=== PATIENT | male | born 1965 ===

== ENCOUNTER → 2020-07-29 15:18 | Outpatient (BNVA) | payer OTHER, SELFPAY | PROVIDERS: PCP Internal Medicine; Visit Provider Urology ==

== ENCOUNTER → 2021-01-27 15:05 | Outpatient (BNVA) | payer OTHER, SELFPAY | PROVIDERS: Visit Provider Urology ==

== ENCOUNTER → 2022-12-14 12:25 | Outpatient (BNVA) | payer OTHER, SELFPAY | PROVIDERS: PCP Internal Medicine; Visit Provider Urology ==

== ENCOUNTER 2023-08-16 14:19 | Outpatient (AMB) | payer OTHER, SELFPAY ==
--- NOTE | 2023-08-16 14:37 | A.OFFVIS_ITS ---
Intake Intake Visit Reasons: 6M PVR(VM to confirm) Intake Note: Patient presents today for a follow-up Meds- Tadalafil, Sildenafil, Tamsulolsin Allergies to Antibiotic- No Known Allergies Blood Thinner: Aspirin Post Void Residual: 235ml Senior Health Consultant Required: No Accompanied by: Self / Same As Patient Allergies No Known Allergies Allergy (Verified 08/16/23 14:40) Medication List - Last Reconciled 08/16/23 by Kev Tobin MD aspirin 81 mg PO DAILY metformin 1,000 mg PO BID pravastatin 20 mg PO DAILY sildenafil 100 mg PO DAILY PRN 30 days tadalafil 5 mg PO DAILY 90 days tamsulosin 0.4 mg PO BEDTIME 90 days HPI HPI Comments History of Present Illness Details Luigi LOWE is a very pleasant male. He is a patient of Dr. Stokes. He is seen for the following urologic conditions. - lower urinary tract symptoms - daily t amsulosin - erectile dysfunction with type 2 diabe cruz - daily tadalafil with on demand sildenafil Follow-up of tadalafil 5 mg daily trial - with on demand Requires 40 mg on demand Noted to have PVR 200 cc Review in 6 months for bladder emptying PSA stable T 350 Slight decline in HbA1c consistent with tadalafil result Prior UTI with ciprofloxacin 10/09 - secondary to dehydration Lower Urinary Tract Symptoms: Six month follow-up for symptom control Doing well with medications. alpha-merry working well. Continue tamsulosin Discussed prostate procedure. Current visit is for further evaluation of, predominate obstructive symptoms. Current treatment includes medication, alpha merry. Prostate Symptom Score Mild (0-8), Bother 2. Symptoms include incomplete emptying, and are progressing. Results from testing include uroflow was performed No transrectal ultrasound No renal/bladder us No Prior Prostate Score unknown. Prostate volume 30-50gm. PSA - 07/09 0.8, 12/09 1.1 T 350 Associated conditions CAD No CVA No diabetes Yes elevated PSA No erectile dysfunction Yes hematuria No renal insufficiency No urge incontinence No urinary retention No urinary tract infection No psychiatric diagnosis No Testing at next visit will include bladder scan. Treatment plan Continue Flomax Erectile dysfunction - background of T2DM Daily tadalafil 5mg PFSH Medical History Incomplete emptying of bladder Review of Systems Const Denies chills and Denies fever(s) Card Reports no additional complaints and Denies syncope Resp Denies cough GI Denies abdominal pain and Denies heartburn Reports as per HPI and Denies change in libido Neuro Denies syncope Psych Denies change in libido Endo Denies change in libido Physical Exam Const General: cooperative, healthy appearing, comfortable and no acute distress Orientation/consciousness: patient oriented x3 HEENT Face and sinus: Yes normal facial exam Mouth: moist mucous membranes Neck Neck: Yes normal visual inspection, Yes full ROM and Yes trachea midline Chest Chest palpation & inspection: normal inspection of the chest Resp Effort & Inspection: normal respiratory effort, able to speak in complete sentences and no respiratory distress GI Inspection: Yes normal to inspection Back/Spine/Pelvis Cervical Spine: normal cervical lordosis Thoracic/Lumbar Spine: thoracic and lumbar spine normal to inspection Skin General skin exam: no rashes or lesions noted Neuro General: patient oriented x3, gait normal, tone normal and moves all extremities Extrem General: Yes normal to inspection and Yes capillary refill normal Office Procedures Post Void Residual Post Residual Void Post Void Residual (PVR): 235 [id number] Void Residual by ultrasound Assessment & Plan Assessment & Plan (1) Erectile dysfunction: Code(s): N52.9 - Male erectile dysfunction, unspecified (2) BPH loc w urin obs/LUTS: Code(s): N40.1 - Benign prostatic hyperplasia with lower urinary tract symptoms (3) Incomplete emptying of bladder due to benign prostatic hyperplasia: Code(s): N40.1 - Benign prostatic hyperplasia with lower urinary tract symptoms; R33.9 - Retention of urine, unspecified Plan Six-month follow-up PVR Orders: Orders AMB Post Void Residual by ultrasound 08/16/23 R33.9 - Retention of urine, unspecified Medications: Refilled tadalafil Daily medication 5 mg PO DAILY 90 tabs 1RF sexual activity 90 days N52.9 - Male erectile dysfunction, unspecified sildenafil 100 mg PO DAILY PRN 30 tabs 1RF sexual activity 30 days N52.9 - Male erectile dysfunction, unspecified Patient Instructions: Imaging studies, laboratory and physical exam results were discussed and reviewed in detail. No major barriers to patient understanding were identified. An opportunity to ask questions regarding the treatment plan was provided. All questions were answered. The patient expressed understanding and agreement with the above treatment plan. The patient is aware they should contact our office by phone for worsening of their current condition or the appearance of new urologic symptoms. Compliance is encouraged with any medications and followup testing that is ordered. It is a privilege to participate in the urologic care of your patient. If you have any questions or concerns regarding treatment for the above conditions, or other urologic issues, please do not hesitate to contact me. The office telep quintin contact is [phone]. This note is constructed using voice recognition software. While every effort has been made to ensure accuracy carton filling machine operator errors may have been included. Yours sincerely, Dr Kev Tobin MD, [facility] - Urology Providers of Expert, Compassionate Care for the Genitourinary System Coding Level of Care Code Est Pt Level 3 (41505) Diagnoses Erectile dysfunction N52.9 BPH loc w urin obs/LUTS N40.1 Incomplete emptying of bladder due to benign prostatic hyperplasia N40.1; R33.9 CPT Codes Post Residual Void - PVR CPT Code: 24323-Avsy Void Residual by ultrasound ([id number])
== END 2023-08-16 15:14 | disposition home or self-care (01) ==
PROVIDERS: PCP Internal Medicine; Visit Provider Urology
DX: N52.9 Male erectile dysfunction, unspecified (principal); N40.1 Benign prostatic hyperplasia with lower urinary tract symptoms; R33.9 Retention of urine, unspecified
CPT/HCPCS: 99213

== ENCOUNTER → 2023-08-16 14:19 | Outpatient (BNVA) | payer OTHER, SELFPAY | PROVIDERS: PCP Internal Medicine; Visit Provider Urology | DX: N52.9 Male erectile dysfunction, unspecified (principal); N40.1 Benign prostatic hyperplasia with lower urinary tract symptoms; N13.8 Other obstructive and reflux uropathy; R33.8 Other retention of urine | CPT/HCPCS: 51798 ==

== ENCOUNTER 2024-02-16 14:19 | Outpatient (AMB) | payer OTHER, SELFPAY ==
--- NOTE | 2024-02-16 14:56 | A.OFFVIS_ITS ---
Intake Visit Reasons: 6m/PVR Intake Note: Patient is Present for PVR Urology Med: Tamsulosin, Sildenafil,Tadalafil Antibiotic Allergy: None Blood Thinner: Aspirin Last PVR: 235ml Todays PVR: 249ml Last PSA 09/2022- 1.1 Interventional Physician Required: No Accompanied by: Self / Same As Patient Allergies No Known Allergies Allergy (Verified 02/16/24 15:01) Medication List - Last Reconciled 02/16/24 by Kev Tobin MD aspirin 81 mg PO DAILY metformin 1,000 mg PO BID pravastatin 20 mg PO DAILY sildenafil 100 mg PO DAILY PRN 30 days tadalafil 5 mg PO DAILY 90 days tamsulosin 0.4 mg PO BEDTIME 90 days HPI Comments Details: Luigi LOWE is a very pleasant male. He is a patient of Dr. Stokes. He is seen for the following urologic conditions. - lower urinary tract symptoms - daily tamsulosin - erectile dysfunction with type 2 diabetes - daily tadalafil with on demand sildenafil Follow-up of tadalafil 5 mg daily trial - with on demand sildenafil PVR consistent 200cc PSA stable T 350 Slight decline in HbA1c consistent with tadalafil result Discussed timing for sildenafil dosage Trial prior to dinner Six-month follow-up repeat T Prior UTI with ciprofloxacin 10/09 - secondary to dehydration Lower Urinary Tract Symptoms: Six month follow-up for symptom control Doing well with medications. alpha-merry working well. Continue tamsulosin Discussed prostate procedure. Current visit is for further evaluation of, predominate obstructive symptoms. Current treatment includes medication, alpha merry. Prostate Symptom Score Mild (0-8), Bother 2. Symptoms include incomplete emptying, and are progressing. Results from testing include uroflow was performed No transrectal ultrasound No renal/bladder us No Prior Prostate Score unknown. Prostate volume 30-50gm. PSA - 07/09 0.8, 12/09 1.1 T 350 Associated conditions CAD No CVA No diabetes Yes elevated PSA No erectile dysfunction Yes Testing at next visit will include bladder scan. Treatment plan Continue Flomax Erectile dysfunction - background of T2DM Daily tadalafil 5mg PFS Medical History (Updated 02/16/24 @ 15:27 by Kev Tobin MD) Erectile dysfunction Incomplete emptying of bladder Review of Systems Const Denies chills and Denies fever(s) Card Reports no additional complaints and Denies syncope Resp Denies cough GI Denies abdominal pain and Denies heartburn Reports as per HPI and Denies change in libido Neuro Denies syncope Psych Denies change in libido Endo Denies change in libido Physical Exam Const General: cooperative, healthy appearing, comfortable and no acute distress Orientation/consciousness: patient oriented x3 HEENT Face and sinus: Yes normal facial exam Mouth: moist mucous membranes Neck Neck: Yes normal visual inspection, Yes full ROM and Yes trachea midline Chest Chest palpation & inspection: normal inspection of the chest Resp Effort & Inspection: normal respiratory effort, able to speak in complete sentences and no respiratory distress GI Inspection: Yes normal to inspection Back/Spine/Pelvis Cervical Spine: normal cervical lordosis Thoracic/Lumbar Spine: thoracic and lumbar spine normal to inspection Skin General skin exam: no rashes or lesions noted Neuro General: patient oriented x3, gait normal, tone normal and moves all extremities Extrem General: Yes normal to inspection and Yes capillary refill normal Office Procedures Post Void Residual Post Residual Void Post Void Residual (PVR): 249 22207-Misr Void Residual by ultrasound Assessment & Plan Assessment & Plan (1) Erectile dysfunction associated with type 2 diabetes mellitus: Code(s): E11.69 - Type 2 diabetes mellitus with other specified complication; N52.1 - Erectile dysfunction due to diseases classified elsewhere Category: Medical (2) BPH loc w urin obs/LUTS: Code(s): N40.1 - Benign prostatic hyperplasia with lower urinary tract symptoms Category: Medical Plan Six-month follow-up T Orders: Orders AMB Post Void Residual by ultrasound Today N40.1 - Benign prostatic hyperplasia with lower urinary tract symptoms, R33.9 - Retention of urine, unspecified Testosterone, Total 6 Months N52.9 - Male erectile dysfunction, unspecified Prostate Specific Antigen 6 Months N52.9 - Male erectile dysfunction, unspecified Patient Instructions: Imaging studies, laboratory and physical exam results were discussed and reviewed in detail. No major barriers to patient understanding were identified. An opportunity to ask questions regarding the treatment plan was provided. All questions were answered. The patient expressed understanding and agreement with the above treatment plan. The patient is aware they should contact our office by phone for worsening of their current condition or the appearance of new urologic symptoms. Compliance is encouraged with any medications and followup testing that is ordered. It is a privilege to participate in the urologic care of your patient. If you have any questions or concerns regarding treatment for the above conditions, or other urologic issues, please do not hesitate to contact me. The office telephone contact is [phone]. This note is constructed using voice recognition software. While every effort has been made to ensure accuracy research program internship errors may have been included. Yours sincerely, Dr Kev Tobin MD, [facility] - Urology Providers of Expert, Compassionate Care for the Genitourinary System Coding Level of Care Code Est Pt Level 4 (75148) Diagnoses Erectile dysfunction associated with type 2 diabetes mellitus E11.69; N52.1 BPH loc w urin obs/LUTS N40.1 CPT Codes Post Residual Void - PVR CPT Code: 08641-Bhyo Void Residual by ultrasound ([id number])
== END 2024-02-16 15:24 | disposition home or self-care (01) ==
PROVIDERS: PCP Internal Medicine; Visit Provider Urology
DX: E11.69 Type 2 diabetes mellitus with other specified complication (principal); N52.1 Erectile dysfunction due to diseases classified elsewhere; N40.1 Benign prostatic hyperplasia with lower urinary tract symptoms
CPT/HCPCS: 99214

== ENCOUNTER → 2024-02-16 14:19 | Outpatient (BNVA) | payer OTHER, SELFPAY | PROVIDERS: PCP Internal Medicine; Visit Provider Urology | DX: E11.69 Type 2 diabetes mellitus with other specified complication (principal); N52.1 Erectile dysfunction due to diseases classified elsewhere; N40.1 Benign prostatic hyperplasia with lower urinary tract symptoms; N13.8 Other obstructive and reflux uropathy; R33.8 Other retention of urine | CPT/HCPCS: 51798 ==

== ENCOUNTER 2024-08-14 14:47 | Outpatient (AMB) | payer OTHER, SELFPAY ==
--- NOTE | 2024-08-14 14:47 | A.OFFVIS_ITS ---
Intake Visit Reasons: Six-month follow-up labs tele Intake Note: Patient is present for 6M/LABS F/U Urology Medication:TAMSULOSIN,SILDENAFIL,TADALAFIL Antibiotic Allergy:NONE Blood Thinner:ASPIRIN Molded Goods Inspector Trimmer Required: No Allergies No Known Allergies Allergy (Verified 08/14/24 14:48) HPI Comments Details: Luigi LOWE is a very pleasant male. He is a patient of Dr. Stokes. He is seen for the following urologic conditions. 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 alpha-merry working well. Continue tamsulosin Discussed prostate procedure. Current visit is for further evaluation of, predominate obstructive symptoms. Current treatment includes medication, alpha merry. Prostate Symptom Score Mild (0-8), Bother 2. Symptoms include incomplete emptying, and are progressing. Results from testing include uroflow was performed No transrectal ultrasound No renal/bladder us No Prior Prostate Score unknown. Prostate volume 30-50gm. PSA- 07/09 0.8, 12/09 1.1 T 350 Associated conditions CAD No CVA No diabetes Yes elevated PSA No erectile dysfunction Yes Testing at next visit will include bladder scan. Treatment plan Continue Flomax Erectile dysfunction - background of T2DM Daily tadalafil 5mg Low normal testosterone [facility] Medical History (Updated 02/16/24 @ 15:27 by Kev Tobin MD) Erectile dysfunction Incomplete emptying of bladder Review of Systems Const All systems reviewed & are unremarkable except as noted in HPI and below Denies chills and Denies fever(s) Card Reports no additional complaints and Denies syncope Resp Denies cough GI Denies abdominal pain and Denies heartburn Reports as per HPI and Denies change in libido Musc Reports no additional complaints Neuro Denies syncope Psych Denies change in libido Endo Denies change in libido Physical Exam Telemedicine evaluation Appropriate responses Regular breathing rate and rhythm HEENT Head: Yes normal to inspection Ears: hearing grossly normal bilaterally Eyes General: appearance normal, both eyes and all related structures Neck Neck: Yes normal visual inspection Chest Chest palpation & inspection: normal inspection of the chest Resp Effort & Inspection: normal respiratory effort and able to speak in complete sentences Telehealth Telehealth Location of provider rendering services: practice address Location of patient: address on file Patient Identification confirmed using: Name, : Yes Telehealth method: voice only Patient verbally consented to treatment: Yes Patient verbally consented to billing insurance company: Yes Patient informed of any privacy concerns related to visit: Yes Assessment & Plan Assessment & Plan (1) Erectile dysfunction associated with type 2 diabetes mellitus: Code(s): E11.69 - Type 2 diabetes mellitus with other specified complication; N52.1 - Erectile dysfunction due to diseases classified elsewhere Category: Medical (2) Incomplete emptying of bladder due to benign prostatic hyperplasia: Code(s): N40.1 - Benign prostatic hyperplasia with lower urinary tract symptoms; R33.9 - Retention of urine, unspecified Category: Medical Plan Six-month follow-up office Medications: Refilled tamsulosin 0.4 mg PO BEDTIME 90 caps 1RF 90 days N52.9 - Male erectile dysfunction, unspecified tadalafil Daily medication 5 mg PO DAILY 90 tabs 1RF sexual activity 90 days N52.9 - Male erectile dysfunction, unspecified sildenafil 100 mg PO DAILY PRN 30 tabs 1RF sexual activity 30 days N52.9 - Male erectile dysfunction, unspecified Patient Instructions: This note is constructed using voice recognition software. While every effort has been made to ensure accuracy people greeter errors may have been included. Imaging studies, laboratory and physical exam results were discussed and reviewed in detail. No major barriers to patient understanding were identified. An opportunity to ask questions regarding the treatment plan was provided. All questions were answered. The patient expressed understanding and agreement with the above treatment plan. The patient is aware they should contact our office by phone for worsening of their current condition or the appearance of new urologic symptoms. Compliance is encouraged with any medications and followup testing that is ordered. It is a privilege to participate in the urologic care of your patient. If you have any questions or concerns regarding treatment for the above conditions, or other urologic issues, please do not hesitate to contact me. The office telephone contact is [phone]. Sincerely, Dr Kev Tobin MD, [facility] - Urology Compassionate Specialist Care for the Genitourinary System Coding Level of Care Code Tele Est Pt Level 3 (10275) Complex EM visit Add On G2211 Diagnoses Erectile dysfunction associated with type 2 diabetes mellitus E11.69; N52.1 Incomplete emptying of bladder due to benign prostatic hyperplasia N40.1; R33.9
--- OUTSIDE RECORDS SUMMARY | 2024-08-14 18:14 | XMS_ITS ---
Continuity of Care Document (CCD) Created on: August 14, 2024 Luigi Son External Reference #: [id number] : [id number] Sex: Male Author Organization [facility] Address [address] [place] [address] Phone [phone] Social History Type Date Description Comments Sex Unknown Medical Devices Description No Information Available Encounters Description No Information Available Assessments Description No Information Available Plan of Treatment No Information Available Functional Status Description No Information Available Mental Status Description No Information Available Referrals Description No Information Available
== END 2024-08-14 15:41 | disposition home or self-care (01) ==
LOC: HO.HUSH 14:47
PROVIDERS: PCP Internal Medicine; Visit Provider Urology
DX: E11.69 Type 2 diabetes mellitus with other specified complication (principal); N52.1 Erectile dysfunction due to diseases classified elsewhere; N40.1 Benign prostatic hyperplasia with lower urinary tract symptoms; R33.9 Retention of urine, unspecified
CPT/HCPCS: 98013

== ENCOUNTER → 2024-08-14 14:47 | Outpatient (BNVA) | payer OTHER, SELFPAY | PROVIDERS: PCP Internal Medicine; Visit Provider Urology ==

== ENCOUNTER 2024-08-21 07:49 | Outpatient (REF) | payer OTHER, SELFPAY ==
--- OUTSIDE RECORDS SUMMARY | 2024-08-21 07:52 | XMS_ITS | Continuity of Care Document ---
Author Organization [facility] Address [address] [place] [address] Phone [phone] Social History Type Date Description Comments Sex Unknown Medical Devices Description No Information Available Encounters Description No Information Available Assessments Description No Information Available Plan of Treatment No Information Available Functional Status Description No Information Available Mental Status Description No Information Available Referrals Description No Information Available
[2024-08-21 11:41] LABS: Prostate Specific Antigen 1.97 ng/mL (<0.05-4.0)
[2024-08-27 13:39] LABS: Testosterone, Total 285 ng/dL (250-1100)
== END 2024-08-21 07:50 | disposition home or self-care (01) ==
LOC: HO.10HDL 07:49
PROVIDERS: Visit Provider Urology
DX: N52.9 Male erectile dysfunction, unspecified (principal); Z12.5 Encounter for screening for malignant neoplasm of prostate
CPT/HCPCS: 36415; 84153; 84403

== ENCOUNTER 2025-02-18 13:51 | Outpatient (AMB) | payer OTHER, SELFPAY ==
--- NOTE | 2025-02-18 13:51 | MHC.OFFVIS ---
Intake Visit Reasons: 6m follow up Intake Note: Patient is present for 6M follow up Urology Medication:TAMSULOSIN,SILDENAFIL,TADALAFIL Antibiotic Allergy:NONE Blood Thinner:ASPIRIN PVR: 120 mls Chemist Internship Required: No Accompanied by: Self / Same As Patient Allergies No Known Allergies Allergy (Verified 02/18/25 13:52) HPI Comments Details: Luigi LOWE is a very pleasant male. He is a patient of Dr. Stokes. He is seen for the following urologic conditions. - lower urinary tract symptoms - daily tamsulosin - erectile dysfunction with type 2 diabetes - daily tadalafil with on demand sildenafil - male hypogonadism Given low testosterone in setting of type 2 diabetes recommend testosterone latter day Trial enclomiphene Borderline hypogonadism in setting of diabetes - 09/10 285 2.0 Lower Urinary Tract Symptoms: In setting of diabetes Six month follow-up for symptom control Doing well with medications. alpha-merry working well. Continue tamsulosin Discussed prostate procedure. Current visit is for further evaluation of, predominate obstructive symptoms. Current treatment includes medication, alpha merry. Prostate Symptom Score Mild (0-8), Bother 2. Symptoms include incomplete emptying, and are progressing. Results from testing include uroflow was performed No transrectal ultrasound No renal/bladder us No Prior Prostate Score unknown. Prostate volume 30-50gm. PSA- 07/09 0.8, 12/09 1.1 T 350, 09/10 285 Associated conditions CAD No CVA No diabetes Yes elevated PSA No erectile dysfunction Yes Testing at next visit will include bladder scan. Treatment plan Continue Flomax Erectile dysfunction - background of T2DM Daily tadalafil 5mg Low normal testosterone [facility] Medical History (Updated 02/18/25 @ 14:16 by Kev Tobin MD) Erectile dysfunction Incomplete emptying of bladder Review of Systems Const Denies chills and Denies fever(s) Card Reports no additional complaints and Denies syncope Resp Denies cough GI Denies abdominal pain and Denies heartburn Reports as per HPI and Denies change in libido Neuro Denies syncope Psych Denies change in libido Endo Denies change in libido Physical Exam Const General: cooperative, healthy appearing, comfortable and no acute distress Orientation/consciousness: patient oriented x3 HEENT Face and sinus: Yes normal facial exam Mouth: moist mucous membranes Neck Neck: Yes normal visual inspection, Yes full ROM and Yes trachea midline Chest Chest palpation & inspection: normal inspection of the chest Resp Effort & Inspection: normal respiratory effort, able to speak in complete sentences and no respiratory distress GI Inspection: Yes normal to inspection Back/Spine/Pelvis Cervical Spine: normal cervical lordosis Thoracic/Lumbar Spine: thoracic and lumbar spine normal to inspection Skin General skin exam: no rashes or lesions noted Neuro General: patient oriented x3, gait normal, tone normal and moves all extremities Extrem General: Yes normal to inspection and Yes capillary refill normal Assessment & Plan Assessment & Plan (1) Primary hypogonadism in male: Code(s): E29.1 - Testicular hypofunction Category: Medical Plan Three-month follow-up lab work tele Orders: Orders Lutenizing Hormone 10 Weeks E29.1 - Testicular hypofunction Testosterone, Total 10 Weeks E29.1 - Testicular hypofunction Medications: New [enclomiphene] Patient Cell Number - [facility] - Fax , 1 tab PO DAILY 90 tabs 1RF 90 days E29.1 - Testicular hypofunction Patient Instructions: This note is constructed using voice recognition software. While every effort has been made to ensure accuracy solar systems designer errors may have been included. Imaging studies, laboratory and physical exam results were discussed and reviewed in detail. No major barriers to patient understanding were identified. An opportunity to ask questions regarding the treatment plan was provided. All questions were answered. The patient expressed understanding and agreement with the above treatment plan. The patient is aware they should contact our office by phone for worsening of their current condition or the appearance of new urologic symptoms. Compliance is encouraged with any medications and followup testing that is ordered. It is a privilege to participate in the urologic care of your patient. If you have any questions or concerns regarding treatment for the above conditions, or other urologic issues, please do not hesitate to contact me. The office telephone contact is [phone]. Sincerely, Dr Kev Tobin MD, [facility] - Urology Compassionate Specialist Care for the Genitourinary System Coding Level of Care Code Est Pt Level 4 (34043) Diagnoses Primary hypogonadism in male E29.1
--- OUTSIDE RECORDS SUMMARY | 2025-02-18 15:05 | XMS_ITS | Continuity of Care Document ---
Author Organization [facility] Address [address] [place] [address] Phone [phone] Social History Type Date Description Comments Sex Male Sex Unknown Medical Devices Description No Information Available Encounters Description No Information Available Assessments Description No Information Available Plan of Treatment No Information Available Functional Status Description No Information Available Mental Status Description No Information Available Referrals Description No Information Available
== END 2025-02-18 14:19 | disposition home or self-care (01) ==
LOC: HO.HUSH 13:51
PROVIDERS: PCP Internal Medicine; Visit Provider Urology
DX: Z13.9 Encounter for screening, unspecified (principal); E29.1 Testicular hypofunction
CPT/HCPCS: 99214

== ENCOUNTER → 2025-02-18 13:51 | Outpatient (BNVA) | payer OTHER, SELFPAY | PROVIDERS: PCP Internal Medicine; Visit Provider Urology | DX: E29.1 Testicular hypofunction (principal) | CPT/HCPCS: 51798; 81003 ==

== ENCOUNTER 2025-05-01 14:11 | Outpatient (REF) | payer OTHER, SELFPAY ==
--- OUTSIDE RECORDS SUMMARY | 2024-09-03 09:30 | XMS_ITS ---
Author Organization [facility] Address [address] [place], [place] [id number] Care Team Providers Care Horticultural Specialty Grower Inside Name Role Phone MARIA E MARTINS Primary Care Provider REASON FOR VISIT 6mo F/U MEDICATIONS Medication SIG (Take, Route, Frequency, Duration) Notes Start Date End Date Status Cialis 10 MG 1 tablet as needed O rally Once a day for 30 day(s) Unknown Losartan Potassium 25 MG 1 tablet Orally Once a day for 30 day(s) 03/25/2024 Unknown Flomax 0.4 MG 1 capsule Orally Onc e a day for 30 day(s) Unknown metFORMIN HCl 1000 MG TAKE 1 TABLET BY M OUTH TWICE A DAY WITH A MEAL FOR 90 DAYS for 90 Unknown Pravastatin Sodium 20 MG TAKE 1 TABLET B Y MOUTH EVERY DAY for 90 Unknown Aspirin 81 81 MG 1 tablet Orally Once a day for 30 day(s) Unknown SOCIAL HISTORY Sex Assigned At : Social History Observation Description Sex Assigned At Male Encounters Encounter Location Date Provider Diagnosis [facility] [address] [place] [address] 09/03/2024 MARIA E MARTINS Type 2 diabetes mellitus without complications E11.9 ; Disorder of lipoprotein metabolism, unspecified E78.9 ; Essential (primary) hypertension I10 ; Erectile dysfunction, unspecified erectile dysfunction type N52.9 ; Low testosterone in male R79.89 and Nocturia R35.1 ASSESSMENTS Encounter Date Diagnosis Assessment Notes Treatment Notes Treatment Clinical Notes Section Notes 09/03/2024 Type 2 diabetes mellitus without complications (ICD-10 - E11.9) 09/03/2024 Disorder of lipoprotein metabolism, unspecified (ICD-10 - E78.9) 09/03/2024 Essential (primary) hypertension (ICD-10 - I10) 09/03/2024 Erectile dysfunction, unspecified erectile dysfunction type (ICD-10 - N52.9) 09/03/2024 Low testosterone in male (ICD-10 - R79.89) 09/03/2024 Nocturia (ICD-10 - R35.1) PLAN OF TREATMENT Future Test Test Name Order Date Hemoglobin Q6r-[id number] 08/27/2024 Testosterone-[id number] 08/27/2024 TSH-[id number] 08/27/2024 Luteinizing Hormone(LH)-314269 Follicle-stimulating Hormone(FSH)-014663 08/27/2024 Prolactin-688414 08/27/2024 Prostate-Specific Ag (PSA)-[id number] 2024 CBC, Platelet, w/o Differential-[id number] 0 08/27/2024 Lipid Panel-[id number] 08/27/2024 BMP8+eGFR-[id number] 08/27/2024 Next Appt Details Follow Up: OV 6 months labs pending, Reason: History and Physical Notes * HPI (History of Present Illness) Category Sub-Category Detail Notes Category Not es General htn f/u. see ro s
--- OUTSIDE RECORDS SUMMARY | 2024-09-19 10:30 | XMS_ITS ---
Author Organization [facility] Address [address], [place] [address] Care Team Providers Care Dope House Operator Helper Name Role Phone MARIA E MARTINS Primary Care Provider ALLERGIES No Known Allergies REASON FOR VISIT follow up MEDICATIONS Medication SIG (Take, Route, Frequency, Duration) Notes Start Date End Date Status Losartan Potassium 25 MG 1 tablet Orally Once a day for 30 day(s) 03/25/2024 Active Pravastatin Sodium 20 MG TAKE 1 TABLET B Y MOUTH EVERY DAY for 90 Active metFORMIN HCl 1000 MG TAKE 1 TABLET BY M OUTH TWICE A DAY WITH A MEAL FOR 90 DAYS for 90 Active Flomax 0.4 MG 1 capsule Orally Onc e a day for 30 day(s) Active Cialis 5 MG 1 tab(s) Orally Once a day Active Aspirin 81 81 MG 1 tablet Orally Once a day for 30 day(s) Active SOCIAL HISTORY Tobacco Use: Social History Observation Description Date Details (start date - stop date) Never Smoker NA - NA Sex Assigned At : Social History Observation Description Sex Assigned At Male Smoking Question Answer Notes Are you a: never smoker VITAL SIGNS Blood pressure systolic 124 mm Hg 09/20/19 25 Blood pressure diastolic 80 mm Hg 025 Height 69 in 09/19/2024 Weight 183 lbs 09/19/2024 BMI 27.02 kg/m2 09/19/2024 Encounters Encounter Location Date Provider Diagnosis [facility] [address] [place] [address] 09/19/2024 MARIA E MARTINS Nocturia R35.1 ; Typ e 2 diabetes mellitus without complications E11.9 ; Disorder of lipoprotein metabolism, unspecified E78.9 ; Essential (primary) hypertension I10 and Erectile dysfunction, unspecified erectile dysfunction type N52.9 ASSESSMENTS Encounter Date Diagnosis Assessment Notes Treatment Notes Treatment Clinical Notes Section Notes 09/19/2024 Nocturia (ICD-10 - R35.1) Stable. Check PSA. Follow-up with urology. Continue with Cialis 5 mg a day 09/19/2024 Type 2 diabetes mellitus without complications (ICD-10 - E11.9) No polyuria polydipsia no ophthalmologic or neurologic symptoms. Ophthalmology follow-up every year. Baby aspirin. Continue DIMAS inhibitor and statin. Check A1c goal less than 7.5 09/19/2024 Disorder of lipoprotein metabolism, unspecified (ICD-10 - E78.9) Continue statin therapy check lipid profile LDL goal less than 100 optimally less than 70 diet exercise weight maintenance 09/19/2024 Essential (primary) hypertension (ICD-10 - I10) Blood pressure well-controlled no change in therapy check EKG normal sinus rhythm no change 09/19/2024 Erectile dysfunction, unspecified erectile dysfunction type (ICD-10 - N52.9) Follow-up with urology. Will check a testosterone in early a.m. along with an FSH LH and prolactin level. Continue with Cialis 5 mg a day PLAN OF TREATMENT Treatment Notes Assessment Notes Nocturia Stable. Check PSA. F ollow-up with urology. Continue with Cialis 5 mg a day Type 2 diabetes mellitus wit hout complications No polyuria polydipsia no ophthalmologic or neurologic symptoms. Ophthalmology follow-up every year. Baby aspirin. Continue DIMAS inhibitor and statin. Check A1c goal less than 7.5 Disorder of lipoprotein meta bolism, unspecified Continue statin therapy check lipid prof ile LDL goal less than 100 optimally less than 70 diet exercise weight maintenance Essential (primary) hypertension Blood p ressure well-controlled no change in therapy check EKG normal sinus rhythm no change Erectile dysfunction, unspec ified erectile dysfunction type Follow-up with urology. Will check a testosterone in early a.m. along with an FSH LH and prolactin level. Continue with Cialis 5 mg a day Future Test Test Name Order Date Hemoglobin [id number] 09/06/2024 Prostate-Specific Ag (PSA)-[id number] 2024 CBC, Platelet, w/o [id number] 09/06/2024 Lipid [id number] 09/06/2024 HCV Antibody-[id number] 09/06/2024 BMP8+[id number] 09/06/2024 Next Appt Details Follow Up: OV 6 months labs pending EKG today, Reason: Progress Notes * Examination Category Sub-Category Detail Notes Category Not es General Examination HEENT: Conjunctiva pink anicteric mucous membranes moist oropharynx clear TMs clear sinus clear EACs clear fundi negative Rest Neck: Supple carotids 2+ n o bruits lymphadenopathy no thyromegaly Heart: RRR, no murmurs, cli cks or rubs Lungs: clear to auscultatio n Abdomen: soft, non tender/non distended, no rebound tenderness, no guarding or rigidity, no masses palpated, no hepatosplenomegaly Extremities: no clubbing , cyanos is, or edema, pulses 2 plus bilaterally General Appearance Pleasant well-develo ped well-nourished black male appearing stated age no apparent distress Skin: normal, no rash, valeria ign appearing moles Neuro alert and oriented x 3, CN 2-12 intact, motor 5/5 bilaterally proximally and distally in all 4 extremities, no focal abnormality lower extremity intact monofilament vibration History and Physical Notes * HPI (History of Present Illness) Category Sub-Category Detail Notes Category Not es General Hypertension fo llow-up. See review of systems below
--- OUTSIDE RECORDS SUMMARY | 2024-09-24 06:38 | XMS_ITS ---
Author Organization [facility] Address [address] [place], [place] [id number] Care Team Providers Care Turf And Grounds Supervisor Name Role Phone MARIA E MARTINS Primary Care Provider [phone] REASON FOR VISIT Labs SOCIAL HISTORY Sex Assigned At : Social History Observation Description Sex Assigned At Male Encounters Encounter Location Date Provider Diagnosis [facility] [address] [place] [address] 09/24/2024 MARIA E MARTINS PLAN OF TREATMENT No Information
--- OUTSIDE RECORDS SUMMARY | 2024-12-30 03:34 | XMS_ITS ---
Author Organization [facility] Address [address] [place], [place] [id number] Care Team Providers Care Ore Grader Name Role Phone MARIA E MARTINS Primary Care Provider REASON FOR VISIT (i) Leg Pain SOCIAL HISTORY Sex Assigned At : Social History Observation Description Sex Assigned At Male Encounters Encounter Location Date Provider Diagnosis [facility] [address] [place] [address] 12/30/2024 MARIA E MARTINS PLAN OF TREATMENT No Information
--- OUTSIDE RECORDS SUMMARY | 2024-12-30 04:00 | XMS_ITS ---
Author Organization [facility] Address [address] [place], [place] [id number] Care Team Providers Care Senior Qa Automation Engineer Name Role Phone MARIA E MARTINS Primary Care Provider REASON FOR VISIT r/s tomorrow's ov to 01/01/25 SOCIAL HISTORY Sex Assigned At : Social History Observation Description Sex Assigned At Male Encounters Encounter Location Date Provider Diagnosis [facility] [address] [place] [address] 12/30/2024 MARIA E MARTINS PLAN OF TREATMENT No Information
--- OUTSIDE RECORDS SUMMARY | 2024-12-31 05:40 | XMS_ITS ---
Author Organization [facility] Address [address] [place], [place] [id number] Care Team Providers Care Sand Slinger Name Role Phone MARIA E MARTINS Primary Care Provider DEIDRA CHAHAL Unavailable [phone] REASON FOR VISIT KP 42 Knee Pain SOCIAL HISTORY Sex Assigned At : Social History Observation Description Sex Assigned At Male Encounters Encounter Location Date Provider Diagnosis [facility] [address] [place] [address] 12/31/2024 DEIDRA CHAHAL PLAN OF TREATMENT No Information
--- OUTSIDE RECORDS SUMMARY | 2025-01-01 08:39 | XMS_ITS ---
Author Organization [facility] Address [address] [place], [place] [id number] Care Team Providers Care Anesthesiology Medical Doctor Name Role Phone MARIA E MARTINS Primary Care Provider [phone] REASON FOR VISIT Update [employer] Demographics SOCIAL HISTORY Sex Assigned At : Social History Observation Description Sex Assigned At Male Encounters Encounter Location Date Provider Diagnosis [facility] [address] [place] [address] 01/01/2025 MARIA E MARTINS PLAN OF TREATMENT No Information
--- OUTSIDE RECORDS SUMMARY | 2025-01-01 08:40 | XMS_ITS ---
Author Organization [facility] Address [address] [place], [place] [address] Care Team Providers Care Reaming Press Operator Name Role Phone MARTINS MARIA E Primary Care Provider DEIDRA CHAHAL Unavailable [phone] ALLERGIES No Known Allergies REASON FOR REFERRAL Reason (faxed 01/05/25) medi al left knee pain, swelling, pain with valgus stress, ?meniscal tear vs MCL strain Diagnosis 1 Left medial knee salvador n (M25.562) Referral Organization [facility] Referring Provider First Name DEIDRA Referring Provider Last Name TIRSO Referring Provider Speciality Physician Aircraft Captain Referred Provider RK MESA Notes Leslie MURRIETA MA 12/18 09:55:18 PM > faxed ref to f: [phone] Referral Priority Urgent REASON FOR VISIT /left [...] SIGNS Blood pressure systolic 124 mm Hg 01/02/20 25 Blood pressure diastolic 72 mm Hg 025 Height 69 in 01/01/2025 Weight 189 lbs 01/01/2025 BMI 27.91 kg/m2 01/01/2025 Encounters Encounter Location Date Provider Diagnosis [facility] [address] [place] [address] 01/01/2025 DEIDRA PULITO Left medial knee salvador [...]
--- OUTSIDE RECORDS SUMMARY | 2025-03-25 08:45 | XMS_ITS ---
Author Organization [facility] Address [address] [place], [place] [id number] Care Team Providers Care Oracle Software Engineer Name Role Phone MARIA E MARTINS Primary Care Provider [phone] ALLERGIES No Known Allergies REASON FOR REFERRAL Reason 03/28/25 W APPT Refe rral to [facility] for colonoscopy talk next spring patient will call make appointment Diagnosis 1 Colon cancer screeni jean (Z12.11) Referral Organization [facility] sociates Referring Provider First Name MARIA E Referring Provider Last Name LAKSHMI Referring Provider Speciality Internal M edicine Referred Provider NENA ARNETT Referred Provider Specialty Gastroentero logy General Notes Hoda MURRIETA Admin 03/2025 03:09:24 PM > faxed medical referral, note and most recent labs to [phone]>NO REFERRAL REQUIRED Referral Priority Routine REASON FOR VISIT 6mo F/U MEDICATIONS Medication SIG (Take, Route, Frequency, Duration) Notes Start Date End Date Status Pravastatin Sodium 20 MG TAKE 1 TABLET B Y MOUTH EVERY DAY Active Flomax 0.4 MG 1 capsule Orally Once a day Active Aspirin 81 81 MG 1 tablet Orally Once a day Active metFORMIN HCl 1000 MG TAKE 1 TABLET BY M OUTH TWICE A DAY WITH A MEAL FOR 90 DAYS Active Cialis 5 MG 1 tab(s) Orally Once a day Active Losartan Potassium 25 MG 1 tablet Orally Once a day 03/25/2024 Active SOCIAL HISTORY Tobacco Use: Social History Observation Description Date Details (start date - stop date) Never Smoker NA - NA Sex Assigned At : Social History Observation Description Sex Assigned At Male Smoking Question Answer Notes Are you a: never smoker VITAL SIGNS Blood pressure systolic 135 mm Hg 03/25/20 25 Blood pressure diastolic 80 mm Hg 025 Height 69 in 03/25/2025 Weight 188 lbs 03/25/2025 BMI 27.76 kg/m2 03/25/2025 Encounters Encounter Location Date Provider Diagnosis [facility] [address] [place] [address] 03/25/2025 MARIA E MARTINS Type 2 diabetes mellitus without complications E11.9 ; Essential (primary) hypertension I10 ; Disorder of lipoprotein metabolism, unspecified E78.9 ; Nocturia R35.1 ; Low testosterone in male R79.89 and Colon cancer screening Z12.11 ASSESSMENTS Encounter Date Diagnosis Assessment Notes Treatment Notes Treatment Clinical Notes Section Notes 03/25/2025 Type 2 diabetes mellitus without complications (ICD-10 - E11.9) No polyuria polydipsia. Recommend ophthalmology 2-year. Check A1c goal less than 7 03/25/2025 Essential (primary) hypertension (ICD-10 - I10) Blood pressure recheck normal therefore no change in therapy no added salt diet walk 30 minutes a day liberalize potassium in diet 03/25/2025 Disorder of lipoprotein metabolism, unspecified (ICD-10 - E78.9) Continue statin therapy check lipid profile LDL less than 70 optimally 03/25/2025 Nocturia (ICD-10 - R35.1) Stable check PSA follow-up in 1 year 03/25/2025 Low testosterone in male (ICD-10 - R79.89) Follow-up with urology patient will be starting testosterone just got the prescription and will be following up with urology 03/25/2025 Colon cancer screening (ICD-10 - Z12.11) Referral placed for colonoscopy talk for next spring patient aware and will call them in August PLAN OF TREATMENT Treatment Notes Assessment Notes Type 2 diabetes mellitus wit hout complications No polyuria polydipsia. Recommend ophthalmology 2-year. Check A1c goal less than 7 Essential (primary) hypertension Blood p ressure recheck normal therefore no change in therapy no added salt diet walk 30 minutes a day liberalize potassium in diet Disorder of lipoprotein meta bolism, unspecified Continue statin therapy check lipid profile LDL less than 70 optimally Nocturia Stable check PSA fol low-up in 1 year Low testosterone in male Follow-up with urology patient will be starting testosterone just got the prescription and will be following up with urology Colon cancer screening Referral placed f or colonoscopy talk for next spring patient aware and will call them in August Referrals Referral Date Details 03/28/25 W APPT Refe rral to [facility] for colonoscopy talk spring patient will call make appointment, NENA ARNETT Next Appt Details Follow Up: Follow-up 6 month s labs pending, Reason: Progress Notes * Examination Category Sub-Category Detail Notes Category Not es General Examination HEENT: Conjunctiva pink anicteric mucous membranes moist oropharynx clear TMs clear sinus clear EACs clear Neck: Supple carotids 2+ n o bruits lymphadenopathy or thyromegaly Heart: Regular rate and rhy thm no murmurs rubs or gallops Lungs: clear to auscultatio n Abdomen: soft, non tender/non distended, no rebound tenderness, no guarding or rigidity, no masses palpated, no hepatosplenomegaly, normal active bowel sounds Extremities: no clubbing , cyanos is, or edema, pulses 2 plus bilaterally General Appearance Pleasant black male appears stated age no apparent distress Skin: normal, no rash, valeria ign appearing moles Neuro alert and oriented x 3, CN 2-12 intact, motor 5/5 bilaterally proximally and distally in all 4 extremities, no focal abnormality lower extremity intact monofilament vibration Musculoskeletal Left knee good flexi on extension no significant effusion noted History and Physical Notes * HPI (History of Present Illness) Category Sub-Category Detail Notes Category Not es General Hypertension fo llow-up see review of systems below Consultation Request Notes Referral Date Referring Provider Referred Provider Not es 03/25/2025 MARIA E MARTINS BARRY 03/28/25 W APPT Referral to [facility] for colonoscopy talk next spring patient will call make appointment
--- OUTSIDE RECORDS SUMMARY | 2025-03-26 03:32 | XMS_ITS ---
Author Organization [facility] Address [address] [place], [place] [id number] Care Team Providers Care Plant Pathology Teacher Name Role Phone MARIA E MARTINS Primary Care Provider REASON FOR VISIT repeat bw SOCIAL HISTORY Sex Assigned At : Social History Observation Description Sex Assigned At Male Encounters Encounter Location Date Provider Diagnosis [facility] [address] [place] [address] 03/26/2025 MARIA E MARTINS Elevated bilirubin R17 ASSESSMENTS Encounter Date Diagnosis Assessment Notes Treatment Notes Treatment Clinical Notes Section Notes 03/26/2025 Elevated bilirubin (ICD-10 - R17) PLAN OF TREATMENT No Information
--- OUTSIDE RECORDS SUMMARY | 2025-05-01 17:37 | XMS_ITS | Patient Health Record ---
Author Organization [facility] Address [address] [place], [place] [id number] Care Team Providers Care Grounds Manager Name Role Phone MARIA E MARTINS Primary Care Provider [phone] DEIDRA CHAHAL Unavailable [phone] ALLERGIES No Known Allergies REASON FOR REFERRAL Reason (faxed 01/05/25) medi al left knee pain, swelling, pain with valgus stress, ?meniscal tear vs MCL strain Diagnosis 1 Left medial knee salvador n (M25.562) Referral Organization [facility] As bryan Referring Provider First Name DEIDRA Referring Provider Last Name TIRSO Referring Provider Speciality Physician Collision Estimator Referred Provider RK MESA General Notes Leslie MURRIETA [place] 12/18 09:55:18 PM > faxed ref to f: [phone] Referral Priority Urgent Reason 03/28/25 W APPT Refe rral to [facility] for colonoscopy talk next spring patient will call make appointment Diagnosis 1 Colon cancer screeni jean (Z12.11) Referral Organization [facility] Noah adams Referring Provider First Name MARIA E Referring Provider Last Name LAKSHMI Referring Provider Speciality Internal M edicine Referred Provider NENA ARNETT Referred Provider Specialty Gastroentero logy General Notes Hoda MURRIETA 03/2025 03:09:24 PM > faxed medical referral, note and most recent labs to [phone]>NO REFERRAL REQUIRED Referral Priority Routine MEDICATIONS Medication SIG (Take, Route, Frequency, Duration) Notes Start Date End Date Status Losartan Potassium 25 MG 1 tablet Orally Once a day 03/25/2024 Active Pravastatin Sodium 20 MG TAKE 1 TABLET B Y MOUTH EVERY DAY Orally Once a day for 90 days Active Flomax 0.4 MG 1 capsule Orally Once a day Active Aspirin 81 81 MG 1 tablet Orally Once a day Active metFORMIN HCl 1000 MG TAKE 1 TABLET BY M OUTH TWICE A DAY WITH A MEAL FOR 90 DAYS Orally bid for 90 days Active Cialis 5 MG 1 tab(s) Orally Once a day Active SOCIAL HISTORY Tobacco Use: Social History Observation Description Date Details (start date - stop date) Never Smoker NA - NA Sex Assigned At : Social History Observation Description Sex Assigned At Male Smoking Question Answer Notes Are you a: never smoker PROBLEMS Problem Type ICD Code Onset Dates Problem Status W/U Status Risk SNOMED Code Notes Problem Essential (primary) hypertension (I10) Active confirmed Essential hypertension (46053421) Problem Type 2 diabetes mellitus without complications (E11.9) Active confirmed Type II diabetes mellitus without complication (697706346) Problem Disorder of lipoprotein metabolism, 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) (907337493) Problem Enlarged prostate without lower urinary tract symptoms (N40.0) Active confirmed Enlarged prostate (584072125) Problem Erectile dysfunction, unspecified erectile dysfunction type (N52.9) Active confirmed [id number] VITAL SIGNS Blood pressure diastolic 80 mm Hg 03/25/2025 Height 69 in 03/25/2025 Blood pressure systolic 135 mm Hg 03/25/2025 Weight 188 lbs 03/25/2025 BMI 27.76 kg/m2 03/25/2025 Encounters Encounter Location Date Provider Diagnosis [address] [address] 09/03/2024 MARIA E MARTINS Type 2 diabetes mellitus without complications E11.9 ; Disorder of lipoprotein metabolism, unspecified E78.9 ; Essential (primary) hypertension I10 ; Erectile dysfunction, unspecified erectile dysfunction type N52.9 ; Low testosterone in male R79.89 and Nocturia R35.[address] [address] 09/19/2024 MARIA E MARTINS Nocturia R35.1 ; Typ e 2 diabetes mellitus without complications E11.9 ; Disorder of lipoprotein metabolism, unspecified E78.9 ; Essential (primary) hypertension I10 and Erectile dysfunction, unspecified erectile dysfunction type N52.[address] [address] 09/24/2024 MARIA E MARTINS [address] [address] 12/30/2024 MARIA E MARTINS [address] [address] 12/30/2024 MARIA E MARTINS [address] [address] 12/31/[address]O [address] [address] 01/01/2025 MARIA E MARTINS [address] [address] 01/01/2025 DEIDRA PULITO Left medial knee salvador n M25.562 ; Acute left ankle pain M25.572 ; Type 2 diabetes mellitus without complications E11.9 ; Essential (primary) hypertension I10 ; Disorder of lipoprotein metabolism, unspecified E78.9 ; Enlarged prostate without lower urinary tract symptoms N40.0 and Erectile dysfunction, unspecified erectile dysfunction type N52.[address] [address] 03/25/2025 MARIA E MARTINS Type 2 diabetes mellitus without complications E11.9 ; Essential (primary) hypertension I10 ; Disorder of lipoprotein metabolism, unspecified E78.9 ; Nocturia R35.1 ; Low testosterone in male R79.89 and Colon cancer screening Z12.[address] [address] 03/26/2025 MARIA E MARTINS Elevated bilirubin R 17 ASSESSMENTS Encounter Date Diagnosis Assessment Notes Treatment Notes Treatment Clinical Notes Section Notes 03/26/2025 Elevated bilirubin (ICD-10 - R17) 01/01/2025 Left medial knee pain (ICD-10 - [...] if symptoms worsen or do not resolve. 03/25/2025 Type 2 diabetes mellitus without complications (ICD-10 - E11.9) No polyuria polydipsia. Recommend ophthalmology 2-year. Check A1c goal less than 7 03/25/2025 Essential (primary) hypertension (ICD-10 - I10) Blood pressure recheck normal therefore no change in therapy no added salt diet walk 30 minutes a day liberalize potassium in diet 09/19/2024 Nocturia (ICD-10 - R35.1) Stable. Check PSA. Follow-up with urology. Continue with Cialis 5 mg a day 09/19/2024 Type 2 diabetes mellitus without complications (ICD-10 - E11.9) No polyuria polydipsia no ophthalmologic or neurologic symptoms. Ophthalmology follow-up every year. Baby aspirin. Continue DIMAS inhibitor and statin. 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.9) Continue statin therapy check lipid profile LDL less than 70 optimally 01/01/2025 Type 2 diabetes mellitus without complications (ICD-10 - E11.9) 09/03/2024 Erectile dysfunction, unspecified erectile dysfunction type (ICD-10 - N52.9) 09/19/2024 Essential (primary) hypertension (ICD-10 - I10) Blood pressure well-controlled no change in therapy check EKG normal sinus rhythm no change 03/25/2025 Nocturia (ICD-10 - R35.1) Stable check PSA follow-up in 1 year 01/01/2025 Essential (primary) hypertension (ICD-10 - I10) BP at goal of <130/80, continue current med 09/03/2024 Low testosterone in male (ICD-10 - R79.89) 09/19/2024 Erectile dysfunction, unspecified erectile dysfunction type (ICD-10 - N52.9) Follow-up with urology. Will check a testosterone in early a.m. along with an FSH LH and prolactin level. Continue with Cialis 5 mg a day 03/25/2025 Low testosterone in male (ICD-10 - R79.89) Follow-up with urology patient will be starting testosterone just got the prescription and will be following up with urology 01/01/2025 Disorder of lipoprotein metabolism, unspecified (ICD-10 - E78.9) 09/03/2024 Nocturia (ICD-10 - R35.1) 03/25/2025 Colon cancer screening (ICD-10 - Z12.11) Referral placed for colonoscopy talk for next spring patient aware and will call them in 01/01/2025 Enlarged prostate without lower urinary tract symptoms (ICD-10 - N40.0) 01/01/2025 Erectile dysfunction, unspecified erectile dysfunction type (ICD-10 - N52.9) 01/01/2025 Other I am seeing the patient under the supervision of the co-signing physician. The physician was available for consultation at the time of the office visit. PLAN OF TREATMENT Future Test Test Name Order Date TestT+TestF+[id number] 04/19/2024 Hemoglobin [id number] 08/27/2024 Testosterone-[id number] 08/27/2024 TSH-[id number] 08/27/2024 Luteinizing Hormone(LH)-446567 Follicle-stimulating Hormone(FSH)-062352 08/27/2024 Prolactin-[id number] 08/27/2024 Prostate-Specific Ag (PSA)-[id number] 2024 CBC, Platelet, w/o Differential-[id number] 0 08/27/2024 Lipid Panel-[id number] 08/27/2024 BMP8+eGFR-[id number] 08/27/2024 Hemoglobin [id number] 09/06/2024 Prostate-Specific Ag (PSA)-[id number] 2024 CBC, Platelet, w/o Differential-[id number] 09/06/2024 Lipid Panel-[id number] 09/06/2024 HCV Antibody-[id number] 09/06/2024 BMP8+eGFR-[id number] 09/06/2024 Insurance Providers Payer Name Payer Address Payer Phone Subscriber Number Group Number Insured Name Patient Relationship to Insured Coverage Start Date Coverage End Date [employer] [address] [place] [address] [id number] RENE LOWE Self - patient is the insured 5 MEDICAL (GENERAL) HISTORY Medical History History ICD Code high lipids Erectile dysfunction sees Dr. Neri from urology Type 2 diabetes Hyperlipidemia Colonoscopy November 2015 [address]. Velázquez rechec k 2025 BPH with lower urinary tract symptoms Vaccination status. COVID 3 shots 24-hour blood pressure monitor 125/85 Se ptember 2023 Surgical History Surgery Date(Month/Year) torn medial meniscus, thinks left leg
--- OUTSIDE RECORDS SUMMARY | 2025-05-01 17:38 | XMS_ITS | Encounter Summary ---
Author Organization [facility] Address [address] [place] [address] Care Team Providers Care Toolroom Keeper Name Role Phone Onofre Stokes MD Primary Care Provider Reason for Visit * Reason Onset Date Comments special procedure 04/01/2025 Encounter Details Date Type Department Care Team ([facility] st Contact Info) Description 04/01/2025 Telephone Gastroenterology - [address] [facility] [address] [place] [phone] Daron Ramírez MD [address] [facility] [address] [place] [phone] Social History Tobacco Use Types Packs/Day Years Used Date Smoking Tobacco: Never Assessed Sex and Gender Information Value Date Recorded Sex Assigned at Not on file Legal Sex Male 1:49 PM EST Gender Identity Not on file Sexual Orientation Not on file documented as of this encounter Progress Notes * Imani Dias MA - 04/01/2025 11:25 AM EDT Meds and allergies updated * Mouna Winn - 04/01/2025 10:57 AM EDT Referral received from Dr Onofre Stokes's office for colon--passing to [facility] for meds and allergy update. documented in this encounter Plan of Treatment Not on file documented as of this encounter Visit Diagnoses Not on filedocumented in this encounter Historical Medications * This list may reflect changes made after this encounter. metFORMIN (GLUCOPHAGE) 1,000 mg tablet Take 1 tablet (1,000 mg total) by mouth 2 (two) times a day with meals. tadalafiL (CIALIS) 5 mg tablet Take 1 tablet (5 mg total) by mouth 1 (one) time each day. tamsulosin (FLOMAX) 0.4 mg 24 hr capsule Take 1 capsule (0.4 mg total) by mouth 1 (one) time each day. Capsules should be taken 30 minutes following the same meal each day. aspirin 81 mg chewable tablet Chew 1 tablet (81 mg total) 1 (one) time each day. pravastatin (PRAVACHOL) 20 mg tablet Take 1 tablet (20 mg total) by mouth at bedtime. losartan (COZAAR) 25 mg tablet Take 1 tablet (25 mg total) by mouth 1 (one) time each day. added in this encounter Care Teams Toolroom Keeper Relationship Specialty Start Date End Date Onofre Stokes MD [address] [place] [address] PCP - General Internal Medicine 04/01/25 documented as of this encounter
--- OUTSIDE RECORDS SUMMARY | 2025-05-01 17:38 | XMS_ITS | Continuity of Care Document ---
Author Organization [facility] Address [address] [facility] [address] [place] [address] Phone [phone] Social History Type Date Description Comments Sex Male Sex Unknown Medical Devices Description No Information Available Encounters Description No Information Available Assessments Description No Information Available Plan of Treatment No Information Available Functional Status Description No Information Available Mental Status Description No Information Available Referrals Description No Information Available
--- OUTSIDE RECORDS SUMMARY | 2025-05-01 17:38 | XMS_ITS | Clinical Summary ---
Author Organization [facility] [address] [facility] Address [address] [place] [address] Phone Care Team Providers Care Anthropological Linguist Name Role Phone Onofre Stokes MD Primary Care Provider [phone] Allergies No known active allergies Medications losartan (COZAAR) 25 mg tablet Take 1 tablet (25 mg total) by mouth 1 (one) time each day. Active pravastatin (PRAVACHOL) 20 mg tablet Take 1 tablet (20 mg total) by mouth at bedtime. Active aspirin 81 mg chewable tablet Chew 1 tablet (81 mg total) 1 (one) time each day. Active tamsulosin (FLOMAX) 0.4 mg 24 hr capsule Take 1 capsule (0.4 mg total) by mouth 1 (one) time each day. Capsules should be taken 30 minutes following the same meal each day. Active tadalafiL (CIALIS) 5 mg tablet Take 1 tablet (5 mg total) by mouth 1 (one) time each day. Active metFORMIN (GLUCOPHAGE) 1,000 mg tablet Take 1 tablet (1,000 mg total) by mouth 2 (two) times a day with meals. Active Encounters Date Type Department Care Team Description 04/01/2025 Telephone Gastroenterology - [address] [place] [phone] Daron Ramírez MD from Last 3 Months Social History Tobacco Use Types Packs/Day Years Used Date Smoking Tobacco: Never Assessed Sex and Gender Information Value Date Recorded Sex Assigned at Not on file Legal Sex Male 1:49 PM EST Gender Identity Not on file Sexual Orientation Not on file Plan of Treatment Health Maintenance Due Date Last Done Comments DTaP,Tdap,and Td Vaccines (1 - Tdap) 1984 Pneumococcal Vaccine: 50+ Ye ars (1 of 1 - PCV) 2015 Zoster Vaccines (1 of 2) 2015 Cholesterol Screening (Lipid Panel) 07/18/2023 HIV Screening 07/18/2023 Hepatitis C Screening 07/18/2023 Social Influencers of Health Screening 07/18/2023 Depression Screening 06/19/2024 COVID-19 Vaccine (1 - 2024-2 6 season) 2025 Influenza Vaccine (#1) 2025 Colorectal Cancer Screening: Colonoscopy 04/03/2035 04/03/2025 RSV Immunization Adult Patie nts (1 - 1-dose 75+ series) 2040 HIB Vaccines Aged Out No longer eligi ble based on patient's age to complete this topic HPV Vaccines Aged Out No longer eligi ble based on patient's age to complete this topic Hepatitis A Vaccines Aged Out No long er eligible based on patient's age to complete this topic Hepatitis B Vaccines Aged Out No long er eligible based on patient's age to complete this topic IPV Vaccines Aged Out No longer eligi ble based on patient's age to complete this topic MMR Vaccines Aged Out No longer eligi ble based on patient's age to complete this topic Meningococcal ACWY Vaccine Aged Out N o longer eligible based on patient's age to complete this topic Meningococcal B Vaccine Aged Out No l onger eligible based on patient's age to complete this topic RSV Immunization Patients Un savannah 20 months Aged Out No longer eligible b ased on patient's age to complete this topic Varicella Vaccines Aged Out No longer eligible based on patient's age to complete this topic Procedures Procedure Name Priority Date/Time Associated Diagnosis Comments COLONOSCOPY Routine 04/03/2025 1:09 PM EDT from Last 3 Months Results * COLONOSCOPY (04/03/2025 1:09 PM EDT) Anatomical Region Laterality Modality Endoscopy us Historical Provider GI~PROCEDURE ORDERABLES F inal Result from Last 3 Months Insurance [facility] Care Teams Anthropological Linguist Relationship Specialty Start Date End Date Onofre Stokes MD [address] [place] [address] PCP - General Internal Medicine 04/01/25
== END 2025-05-01 14:12 | disposition home or self-care (01) ==
LOC: HO.LAB 14:11
PROVIDERS: PCP Internal Medicine; Visit Provider Urology
DX: E29.1 Testicular hypofunction (principal)
CPT/HCPCS: 36415; 83002; 84403

== ENCOUNTER 2025-05-21 13:39 | Outpatient (AMB) | payer OTHER, SELFPAY ==
--- OUTSIDE RECORDS SUMMARY | 2024-09-19 10:30 | XMS_ITS ---
Author Organization [facility] Address [address] [place] [address] Care Team Providers Care Hand Polisher Name Role Phone MARIA E MARTINS Primary Care Provider [phone] ALLERGIES No Known Allergies REASON FOR VISIT [...] Are you a: never smoker VITAL SIGNS Height 69 in 09/19/2024 Weight 183 lbs 09/19/2024 Blood pressure systolic 124 mm Hg 09/20/19 25 Blood pressure diastolic 80 mm Hg 025 BMI 27.02 kg/m2 09/19/2024 Encounters Encounter Location Date Provider Diagnosis [facility] [address] [place] [address] 09/19/2024 MARIA E MARTINS Nocturia R35.1 ; [...] Future Test Test Name Order Date Hemoglobin [id number] 09/06/2024 Prostate-Specific Ag (PSA)-[id number] 2024 CBC, Platelet, w/o Differential-[id number] 0 09/06/2024 Lipid [id number] 09/06/2024 HCV Antibody-[id number] 09/06/2024 BMP8+[id number] 09/06/2024 Next Appt Details Follow Up: OV [...]
--- OUTSIDE RECORDS SUMMARY | 2024-09-24 06:38 | XMS_ITS ---
Author Organization [facility] Address [address] [place] [address] Care Team Providers Care Immunology Specialist Name Role Phone MARIA E MARTINS Primary Care Provider REASON FOR VISIT Labs SOCIAL HISTORY Sex Assigned At : Social History Observation Description Sex Assigned At Male Encounters Encounter Location Date Provider Diagnosis [facility] [address] [place] [address] 09/24/2024 MARIA E MARTINS PLAN OF TREATMENT No Information
--- OUTSIDE RECORDS SUMMARY | 2024-12-30 03:34 | XMS_ITS ---
Author Organization [facility] Address [address] [place] [address] Care Team Providers Care Product Development Intern Name Role Phone MARIA E MARTINS Primary Care Provider REASON FOR VISIT (i) Leg Pain SOCIAL HISTORY Sex Assigned At : Social History Observation Description Sex Assigned At Male Encounters Encounter Location Date Provider Diagnosis [facility] [address] [place] [address] 12/30/2024 MARIA E MARTINS PLAN OF TREATMENT No Information
--- OUTSIDE RECORDS SUMMARY | 2024-12-30 04:00 | XMS_ITS ---
Author Organization [facility] Address [address] [place] [address] Care Team Providers Care Rfp Writer Name Role Phone MARIA E MARTINS Primary Care Provider REASON FOR VISIT r/s tomorrow's ov to 01/01/25 SOCIAL HISTORY Sex Assigned At : Social History Observation Description Sex Assigned At Male Encounters Encounter Location Date Provider Diagnosis [facility] [address] [place] [address] 12/30/2024 MARIA E MARTINS PLAN OF TREATMENT No Information
--- OUTSIDE RECORDS SUMMARY | 2024-12-31 05:40 | XMS_ITS ---
Author Organization [facility] Address [address] [place] [address] Care Team Providers Care Cone Trucker Name Role Phone MARIA E MARTINS Primary Care Provider DEIDRA CHAHAL Unavailable [phone] REASON FOR VISIT KP 42 Knee Pain SOCIAL HISTORY Sex Assigned At : Social History Observation Description Sex Assigned At Male Encounters Encounter Location Date Provider Diagnosis [facility] [address] [place] [address] 12/31/2024 DEIDRA CHAHAL PLAN OF TREATMENT No Information
--- OUTSIDE RECORDS SUMMARY | 2025-01-01 08:39 | XMS_ITS ---
Author Organization [facility] Address [address] [place] [address] Care Team Providers Care Data Analyst Name Role Phone MARIA E MARTINS Primary Care Provider REASON FOR VISIT Update [employer] Demographics SOCIAL HISTORY Sex Assigned At : Social History Observation Description Sex Assigned At Male Encounters Encounter Location Date Provider Diagnosis [facility] [address] [place] [address] 01/01/2025 MARIA E MARTINS PLAN OF TREATMENT No Information
--- OUTSIDE RECORDS SUMMARY | 2025-01-01 08:40 | XMS_ITS ---
Author Organization [facility] Address [address] [place] [address] Care Team Providers Care It Support Consultant Name Role Phone MARIA E MARTINS Primary Care Provider [phone] DEIDRA CHAHAL Unavailable [phone] ALLERGIES No Known Allergies REASON FOR REFERRAL Reason (faxed 01/05/25) medi al left knee pain, swelling, pain with valgus stress, ?meniscal tear vs MCL strain Diagnosis 1 Left medial knee salvador n (M25.562) Referral Organization [facility] Referring Provider First Name DEIDRA Referring Provider Last Name TIRSO Referring Provider Speciality Physician Pipeline Superintendent Referred Provider RK MESA Notes Leslie MURRIETA [place] 12/18 09:55:18 PM > faxed ref to f: [phone] Referral Priority Urgent REASON FOR VISIT /left knee and L ankle pain MEDICATIONS Medication SIG (Take, Route, Frequency, Duration) Notes Start Date End Date Status Pravastatin Sodium 20 MG TAKE 1 TABLET B Y MOUTH EVERY DAY Active Losartan Potassium 25 MG 1 tablet Orally Once a day 03/25/2024 Active metFORMIN HCl 1000 MG TAKE 1 TABLET BY M OUTH TWICE A DAY WITH A MEAL FOR 90 DAYS Active Flomax 0.4 MG 1 capsule Orally Once a day Active Aspirin 81 81 MG 1 tablet Orally Once a day Active Cialis 5 MG 1 tab(s) Orally Once a day Active SOCIAL HISTORY Tobacco Use: Social History Observation Description Date Details (start date - stop date) Never Smoker NA - NA Sex Assigned At : Social History Observation Description Sex Assigned At Male Smoking Question Answer Notes Are you a: never smoker VITAL SIGNS Height 69 in 01/01/2025 Weight 189 lbs 01/01/2025 Blood pressure systolic 124 mm Hg 01/02/20 25 Blood pressure diastolic 72 mm Hg 025 BMI 27.91 kg/m2 01/01/2025 Encounters Encounter Location Date Provider Diagnosis [facility] [address] [place] [address] 01/01/2025 DEIDRA PULITO Left medial knee salvador n M25.562 ; Acute left ankle pain M25.572 ; Type 2 diabetes mellitus without complications E11.9 ; Essential (primary) hypertension I10 ; Disorder of lipoprotein metabolism, unspecified E78.9 ; Enlarged prostate without lower urinary tract symptoms N40.0 and Erectile dysfunction, unspecified erectile dysfunction type N52.9 ASSESSMENTS Encounter Date Diagnosis Assessment Notes Treatment Notes Treatment Clinical Notes Section Notes 01/01/2025 Left medial knee pain (ICD-10 - M25.562) Patient is s/p medial meniscal repair a few years ago and isn't sure on which knee the procedure was done. Patient is not interested in Physical Therapy at this time. Will refer back to Ortho for evaluation. Advise rest, elevation, ice, OTC Voltaren gel as directed. , Pt knows to follow up immediately if symptoms worsen, otherwise will follow up if no improvement. 01/01/2025 Acute left ankle pain (ICD-10 - M25.572) Significantly improved in last 10 days per patient. Advise rest, ice, elevation. Follow up if symptoms worsen or do not resolve. 01/01/2025 Type 2 diabetes mellitus without complications (ICD-10 - E11.9) 01/01/2025 Essential (primary) hypertension (ICD-10 - I10) BP at goal of <130/80, continue current med 01/01/2025 Disorder of lipoprotein metabolism, unspecified (ICD-10 - E78.9) 01/01/2025 Enlarged prostate without lower urinary tract symptoms (ICD-10 - N40.0) 01/01/2025 Erectile dysfunction, unspecified erectile dysfunction type (ICD-10 - N52.9) 01/01/2025 Other I am seeing the patient under the supervision of the co-signing physician. The physician was available for consultation at the time of the office visit. PLAN OF TREATMENT Medication Medication Name Sig Start Date Stop Date Notes Pravastatin Sodium 20 MG TAKE 1 TABLET BY MOUTH EVERY DAY Losartan Potassium 25 MG 1 tablet Orally Once a day 2023 metFORMIN HCl 1000 MG TAKE 1 TABLET BY M OUTH TWICE A DAY WITH A MEAL FOR 90 DAYS Flomax 0.4 MG 1 capsule Orally Once a day Aspirin 81 81 MG 1 tablet Orally Once a day Cialis 5 MG 1 tab(s) Orally Once a day Treatment Notes Assessment Notes Left medial knee pain Patient is s/p med ial meniscal repair a few years ago and isn't sure on which knee the procedure was done. Patient is not interested in Physical Therapy at this time. Will refer back to Ortho for evaluation. Advise rest, elevation, ice, OTC Voltaren gel as directed. , Pt knows to follow up immediately if symptoms worsen, otherwise will follow up if no improvement. Acute left ankle pain Significantly impr rachel in last 10 days per patient. Advise rest, ice, elevation. Follow up if symptoms worsen or do not resolve. Essential (primary) hypertension BP at g oal of <130/80, continue current med Other I am seeing the hugh ent under the supervision of the co-signing physician. The physician was available for consultation at the time of the office visit. Referrals Referral Date Details (faxed 01/05/25) medi al left knee pain, swelling, pain with valgus stress, ?meniscal tear vs MCL strain , RK MESA Next Appt Details Follow Up: please print refe rral to Ortho, prn or as scheduled, Reason: History and Physical Notes * HPI (History of Present Illness) Category Sub-Category Detail Notes Category Not es General 59 yo male pres ents c/o left medial knee and posterior ankle pain x 10 days since playing pickleball with his brother. Does not remember injuring himself during the game. Knee pain occurs with weight bearing and twisting. + swelling. Reports pain in his knee is persistent but pain in ankle has improved with rest and ice. Pain in knee seems to improve after a few minutes of walking. Physical Examination Category Sub-Category Detail Notes Section Note s EXTREMITIES Pulses: DP pulses 2+ Joaquín's sign negative, no calf te nderness/cord NEUROLOGICAL Sensory: normal Motor: 5/5 strength proxima lly and distally in LEs bilat Reflexes: 2/4 bilaterally Gait: Antalgic Mental status: Alert and oriented t o person, place, time Tremor: none Speech normal MUSCULOSKELETAL Ankles: LEFT: no swellin g, + tenderness with palpation of mid Achilles tendon, FROM, no instabilty Knees: RIGHT: normal other than crepitus, LEFT: + swelling, no erythema or ecchymosis, FROM, + crepitus, no tenderness with palpation of the joint line, + pain with valgus stress, Joann/Chica negative, no laxity DERMATOLOGY Skin: no ecchymosis, n o erythema, + three well healed small scars on both anterior knees GENERAL General Appearance: well nourish ed, well developed, pleasant, comfortable, no apparent distress PSYCHOLOGY Grooming: appropriate Eye contact: normal Mood: pleasant Affect appropriate Consultation Request Notes Referral Date Referring Provider Referred Provider Not ralph 01/01/2025 DEIDRA CHAHAL JOHN (faxed 12/18 ) medial left knee pain, swelling, pain with valgus stress, ?meniscal tear vs MCL strain
--- OUTSIDE RECORDS SUMMARY | 2025-03-25 08:45 | XMS_ITS ---
Author Organization [facility] Address [address] [place] [address] Care Team Providers Care Wrapper Hand Name Role Phone MARIA E MARTINS Primary Care Provider [phone] ALLERGIES No Known Allergies REASON FOR REFERRAL Reason 03/28/25 W APPT Refe rral to [facility] for colonoscopy talk next spring patient will call make appointment Diagnosis 1 Colon cancer screeni jean (Z12.11) Referral Organization [facility] Referring Provider First Name MARIA E Referring Provider Last Name LAKSHMI Referring Provider Speciality Internal M edicine Referred Provider NENA ARNETT Referred Provider Specialty Gastroentero logy General Notes Hoda MURRIETA Admin 03/2025 03:09:24 PM > faxed medical referral, note and most recent labs to [phone]>NO REFERRAL REQUIRED Referral Priority Routine REASON FOR [...] never smoker VITAL SIGNS Height 69 in 03/25/2025 Weight 188 lbs 03/25/2025 Blood pressure systolic 135 mm Hg 03/25/20 25 Blood pressure diastolic 80 mm Hg 025 BMI 27.76 kg/m2 03/25/2025 Encounters Encounter Location Date Provider Diagnosis [facility] [address] [place] [address] 03/25/2025 MARIA E MARTINS Type 2 diabetes [...] Details 03/28/25 W APPT Refe rral to [facility] for colonoscopy talk spring patient will [...] MARTINS BARRY 03/28/25 W APPT Referral to [facility] for colonoscopy talk next spring patient will call make appointment
--- OUTSIDE RECORDS SUMMARY | 2025-03-26 03:32 | XMS_ITS ---
Author Organization [facility] Address [address] [place] [address] Care Team Providers Care Jigman Name Role Phone MARIA E MARTINS Primary Care Provider [phone] REASON FOR VISIT repeat bw SOCIAL HISTORY Sex Assigned At : Social History Observation Description Sex Assigned At Male Encounters Encounter Location Date Provider Diagnosis [facility] [address] [place] [address] 03/26/2025 MARIA E MARTINS Elevated bilirubin R17 ASSESSMENTS Encounter Date Diagnosis Assessment Notes Treatment Notes Treatment Clinical Notes Section Notes 03/26/2025 Elevated bilirubin (ICD-10 - R17) PLAN OF TREATMENT No Information
--- NOTE | 2025-05-21 14:05 | MHC.OFFVIS ---
Intake Visit Reasons: 3M Testo/LH(SET) Intake Note: Reason for Visit: Testosterone/LH Results (Telehealth) Urology Meds: Enclomphene, Tadalafil, Tamsulosin, Sildenafil Blood Thinners: Aspirin Labs: 05/01/2025 Total Testosterone- 529 Luteinizing Hormone: 19.2 Last PSA: 1.97 (08/21/2024) Imaging: None Last PVR: 120ml Glass Novelty Maker Required: No Accompanied by: Self / Same As Patient Allergies No Known Allergies Allergy (Verified 05/21/25 14:09) HPI Comments Details: Luigi LOWE is a very pleasant male. He is a patient of Dr. Stokes. He is seen for the following urologic conditions. - lower urinary tract symptoms - daily tamsulosin - erectile dysfunction with type 2 diabetes - daily tadalafil with on demand sildenafil - male hypogonadism Telemedicine Evaluation 15 min Consultation [employer] Merry Video Enclomiphene follow-up 05/13 - 530 19 Good response with 250 point rise in testosterone Borderline hypogonadism in setting of diabetes - 09/10 285 2.0 Six-month follow-up lab work Continue current medications Lower Urinary Tract Symptoms: In setting of diabetes Six month follow-up for symptom control Doing well with medications. alpha-merry working well. Continue tamsulosin Discussed prostate procedure. Current visit is for further evaluation of, predominate obstructive symptoms. Current treatment includes medication, alpha merry. Prostate Symptom Score Mild (0-8), Bother 2. Symptoms include incomplete emptying, and are progressing. Results from testing include uroflow was performed No transrectal ultrasound No renal/bladder us No Prior Prostate Score unknown. Prostate volume 30-50gm. PSA- 07/09 0.8, 12/09 1.1 T 350, 09/10 285 Associated conditions CAD No CVA No diabetes Yes elevated PSA No erectile dysfunction Yes Testing at next visit will include bladder scan. Treatment plan Continue Flomax Erectile dysfunction - background of T2DM Daily tadalafil 5mg Low normal testosterone [facility] Medical History (Updated 02/18/25 @ 14:16 by Kev Tobin MD) Erectile dysfunction Incomplete emptying of bladder Review of Systems Const All systems reviewed & are unremarkable except as noted in HPI and below Reports no additional complaints Resp Reports no additional complaints GI Reports no additional complaints Reports as per HPI Musc Reports no additional complaints Physical Exam Telemedicine evaluation Appropriate responses Regular breathing rate and rhythm HEENT Head: Yes normal to inspection Ears: hearing grossly normal bilaterally Eyes General: appearance normal, both eyes and all related structures Neck Neck: Yes normal visual inspection Chest Chest palpation & inspection: normal inspection of the chest Resp Effort & Inspection: normal respiratory effort and able to speak in complete sentences Telehealth Telehealth Telehealth Platform: [employer] Location of provider rendering services: practice address Location of patient: address on file Patient Identification confirmed using: Name, : Yes Telehealth method: video Patient verbally consented to treatment: Yes Patient verbally consented to billing insurance company: Yes Patient informed of any privacy concerns related to visit: Yes Minutes spent on Phone/Video with Pt.: 15 Assessment & Plan Assessment & Plan (1) Incomplete emptying of bladder due to benign prostatic hyperplasia: Code(s): N40.1 - Benign prostatic hyperplasia with lower urinary tract symptoms; R33.9 - Retention of urine, unspecified Category: Medical (2) Erectile dysfunction associated with type 2 diabetes mellitus: Code(s): E11.69 - Type 2 diabetes mellitus with other specified complication; N52.1 - Erectile dysfunction due to diseases classified elsewhere Category: Medical (3) Primary hypogonadism in male: Code(s): E29.1 - Testicular hypofunction Category: Medical Plan Six-month follow-up lab work office Orders: Orders Lutenizing Hormone 5 Months E11.69 - Type 2 diabetes mellitus with other specified complication, N52.1 - Erectile dysfunction due to diseases classified elsewhere Testosterone, Total 5 Months E11.69 - Type 2 diabetes mellitus with other specified complication, N52.1 - Erectile dysfunction due to diseases classified elsewhere Medications: Refilled tamsulosin 0.4 mg PO BEDTIME 90 caps 1RF 90 days N52.9 - Male erectile dysfunction, unspecified tadalafil Daily medication 5 mg PO DAILY 90 tabs 1RF sexual activity 90 days N52.9 - Male erectile dysfunction, unspecified Patient Instructions: This note is constructed using voice recognition software. While every effort has been made to ensure accuracy filenet p8 developer errors may have been included. Imaging studies, laboratory and physical exam results were discussed and reviewed in detail. No major barriers to patient understanding were identified. An opportunity to ask questions regarding the treatment plan was provided. All questions were answered. The patient expressed understanding and agreement with the above treatment plan. The patient is aware they should contact our office by phone for worsening of their current condition or the appearance of new urologic symptoms. Compliance is encouraged with any medications and followup testing that is ordered. It is a privilege to participate in the urologic care of your patient. If you have any questions or concerns regarding treatment for the above conditions, or other urologic issues, please do not hesitate to contact me. The office telephone contact is [phone]. Sincerely, Dr Kev Tobin MD, [facility] - Urology Compassionate Specialist Care for the Genitourinary System Coding Level of Care Code Tele Est Pt Level 3 (36556) Complex visit Add On G2211 Diagnoses Incomplete emptying of bladder due to benign prostatic hyperplasia N40.1; R33.9 Erectile dysfunction associated with type 2 diabetes mellitus E11.69; N52.1 Primary hypogonadism in male E29.1
--- OUTSIDE RECORDS SUMMARY | 2025-05-21 16:15 | XMS_ITS | Patient Health Record ---
Author Organization [facility] Address [address] [place] [address] Care Team Providers Care Joint Yarner Name Role Phone MARIA E MARTINS Primary Care Provider DEIDRA CHAHAL Unavailable [phone] ALLERGIES No Known Allergies REASON FOR REFERRAL Reason (faxed 01/05/25) medi al left knee pain, swelling, pain with valgus stress, ?meniscal tear vs MCL strain Diagnosis 1 Left medial knee salvador n (M25.562) Referral Organization [facility] As bryan Referring Provider First Name DEIDRA Referring Provider Last Name TIRSO Referring Provider Speciality Physician Geothermal Hvac Technician Referred Provider RK MESA General Notes Leslie MURRIETA MA 12/18 09:55:18 PM > faxed ref to f: [phone] Referral Priority Urgent Reason 03/28/25 W APPT Refe rral to [facility] for colonoscopy talk next spring patient will call make appointment Diagnosis 1 Colon cancer screeni ng (Z12.11) Referral Organization [facility] As bryan Referring Provider First Name MARIA E Referring Provider Last Name LAKSHMI Referring Provider Speciality Internal M edicine Referred Provider NENA ARNETT Referred Provider Specialty Gastroentero logy General Notes Hoda MURRIETA 03/2025 03:09:24 PM > faxed medical referral, note and most recent labs to [phone]>NO REFERRAL REQUIRED Referral Priority Routine MEDICATIONS Medication [...] (primary) hypertension (I10) Active confirmed Essential hypertension (25942698) Problem Type 2 diabetes mellitus without complications (E11.9) Active confirmed Type II diabetes mellitus without complication (718364014) Problem Disorder of lipoprotein metabolism, 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) (239816353) Problem Enlarged prostate without lower urinary tract symptoms (N40.0) Active confirmed Enlarged prostate (531048459) Problem Erectile dysfunction, unspecified erectile dysfunction type (N52.9) Active confirmed [id number] VITAL SIGNS Blood pressure diastolic 80 mm Hg 03/25/2025 Height 69 in 03/25/2025 Blood pressure systolic 135 mm Hg 03/25/2025 Weight 188 lbs 03/25/2025 BMI 27.76 kg/m2 03/25/2025 Encounters Encounter Location Date Provider Diagnosis [address] [address] 09/03/2024 MARIA E MARTINS Type 2 diabetes mellitus without complications E11.9 ; Disorder of lipoprotein metabolism, unspecified E78.9 ; Essential (primary) hypertension I10 ; Erectile dysfunction, unspecified erectile dysfunction type N52.9 ; Low testosterone in male R79.89 and Nocturia R35.[address] [address] 09/19/2024 MARIA E MARTINS Nocturia R35.1 ; Typ e 2 diabetes mellitus without complications E11.9 ; Disorder of lipoprotein metabolism, unspecified E78.9 ; Essential (primary) hypertension I10 and Erectile dysfunction, unspecified erectile dysfunction type N52.[address] [address] 09/24/2024 MARIA E MARTINS [address] [address] 12/30/2024 MARIA E MARTINS [address] [address] 12/30/2024 MARIA E MARTINS [address] [address] 12/31/2024 DEIDRA PULITO [address] [address] 01/01/2025 MARIA E MARTINS [address] [address] 01/01/2025 DEIDRA PULITO Left medial knee salvador n M25.562 ; Acute left ankle pain M25.572 ; Type 2 diabetes mellitus without complications E11.9 ; Essential (primary) hypertension I10 ; Disorder of lipoprotein metabolism, unspecified E78.9 ; Enlarged prostate without lower urinary tract symptoms N40.0 and Erectile dysfunction, unspecified erectile dysfunction type N52.[address] [address] 03/25/2025 MARIA E MARTINS Type 2 diabetes mellitus without complications E11.9 ; Essential (primary) hypertension I10 ; Disorder of lipoprotein metabolism, unspecified E78.9 ; Nocturia R35.1 ; Low testosterone in male R79.89 and Colon cancer screening Z12.[address] [address] 03/26/2025 MARIA E MARTINS Elevated bilirubin R [...] TREATMENT Future Test Test Name Order Date TestT+TestF+[id number] 04/19/2024 Hemoglobin O4z-[id number] 08/27/2024 Testosterone-[id number] 08/27/2024 TSH-[id number] 08/27/2024 Luteinizing Hormone(LH)-901632 Follicle-stimulating Hormone(FSH)-605257 08/27/2024 Prolactin-434220 08/27/2024 Prostate-Specific Ag (PSA)-592890 2024 CBC, Platelet, w/o Differential-[id number] 0 08/27/2024 Lipid Panel-[id number] 08/27/2024 BMP8+eGFR-[id number] 08/27/2024 Hemoglobin F8w-379460 09/06/2024 Prostate-Specific Ag (PSA)-427677 2024 CBC, Platelet, w/o Differential-[id number] 0 09/06/2024 Lipid Panel-563517 09/06/2024 HCV Antibody-[id number] 09/06/2024 BMP8+eGFR-[id number] 09/06/2024 Insurance Providers Payer Name Payer Address Payer Phone Subscriber Number Group Number Insured Name Patient Relationship to Insured Coverage Start Date Coverage End Date [address] [place] [phone] [id number] RENE LOWE Self - patient is the [...]
--- OUTSIDE RECORDS SUMMARY | 2025-05-21 16:16 | XMS_ITS | Clinical Summary ---
Author Organization [facility] [address] [facility] Address [address] [place] [address] Phone Care Team Providers Care Parking Lot Supervisor Name Role Phone Onofre Stokes MD Primary Care Provider [phone] Allergies No known active allergies Medications losartan [...] Care Team Description 04/01/2025 Telephone Gastroenterology - [address] [place] [phone] Daron Ramírez MD from Last 3 [...] inal Result from Last 3 Months Insurance [facility] Care Teams Parking Lot Supervisor Relationship Specialty Start Date End Date Onofre Stokes MD [address] [place] [address] PCP - General Internal Medicine 04/01/25
--- OUTSIDE RECORDS SUMMARY | 2025-05-21 16:16 | XMS_ITS | Continuity of Care Document ---
Author Organization [facility] Address [address] [facility] [address] [place] [address] Phone [phone] Social History Type Date Description Comments Sex Male Sex Unknown Medical Devices Description No Information Available Encounters Description No Information Available Assessments Description No Information Available Plan of Treatment No Information Available Functional Status Description No Information Available Mental Status Description No Information Available Referrals Description No Information Available
== END 2025-05-21 14:52 | disposition home or self-care (01) ==
LOC: HO.HUSH 13:39
PROVIDERS: PCP Internal Medicine; Visit Provider Urology
DX: N40.1 Benign prostatic hyperplasia with lower urinary tract symptoms (principal); R33.9 Retention of urine, unspecified; E11.69 Type 2 diabetes mellitus with other specified complication; N52.1 Erectile dysfunction due to diseases classified elsewhere; E29.1 Testicular hypofunction
CPT/HCPCS: 99213